=== PATIENT | female | born 1975 | race Caucasian/White ===

== ENCOUNTER 2019-05-13 07:39 | Outpatient (CLI) | payer MEDICAID ==
[~2019-05-13 07:39] MED LIST: ESTR1TAB15 PO; IBUP200T49 PO; MONT10TA6 PO; OXYC5CAP2 PO
[2019-05-13] MEDS ORDERED: GADOTERATE 10 MMOL/20 ML SYR ONE (09:45)
== END 2019-05-13 23:59 | disposition home or self-care (01) ==
LOC: CFH 07:39
PROVIDERS: ATTEND Family Medicine
DX: M47.816 Spondylosis without myelopathy or radiculopathy, lumbar region (principal); M47.812 Spondylosis without myelopathy or radiculopathy, cervical region; M43.26 Fusion of spine, lumbar region; M48.061 Spinal stenosis, lumbar region without neurogenic claudication; Z87.891 Personal history of nicotine dependence; F12.20 Cannabis dependence, uncomplicated; M51.36 Other intervertebral disc degeneration, lumbar region; M51.37 Other intervertebral disc degeneration, lumbosacral region; M48.02 Spinal stenosis, cervical region; M25.78 Osteophyte, vertebrae
CPT/HCPCS: 72052; 72156; 72158; A9575